=== PATIENT | female | born 1970 | race African-American/Black ===

== ENCOUNTER 2019-09-19 09:52 | Observation (INO) | payer OTHER, SELFPAY ==
[2019-09-19 10:30] LABS: Hemoglobin 10.1 g/dL (12.0-16.0); Mean Corpuscular HGB CONC 31.8 g/dL (32.0-36.0); Mean Corpuscular Hemoglobin 27.4 pg (27.0-31.0); Mean Corpuscular Volume 86.3 fL (78.0-98.0); Mean Platelet Volume 9.8 fL (7.4-10.4); Platelet Count 114 thou/uL (130-400); RBC Distribution Width 12.5 % (11.5-14.5); Red Blood Cell (RBC) Count 3.69 mill/uL (4.20-5.40); White Blood Cell (WBC) Count 6.5 thou/uL (4.8-10.8)
[2019-09-19 10:43] LABS: ALT (SGPT) 16 U/L (8-55); AST (SGOT) 15 U/L (5-34); Albumin 4.4 g/dL (3.5-5.0); Alkaline Phosphatase 64 U/L (40-110); Anion Gap 12 mmol/L (10-20); BUN (Urea Nitrogen) 18 mg/dL (7.0-18.7); Bilirubin, Total 0.4 mg/dL (0.2-1.2); CK (CPK) 90 U/L (29-168); Calc. Creatinine Clearance 0 mL/min (70-130); Calcium 9.7 mg/dL (7.8-10.44); Carbon Dioxide 26 mmol/L (22-29); Chloride 104 mmol/L (98-107); Estimated GFR-MDRD 28; Globulin 2.2 g/dL (2.4-3.5); Glucose 103 mg/dL (70-105); Potassium 3.8 mmol/L (3.5-5.1); Protein, Total 6.6 g/dL (6.0-8.3); Sodium 138 mmol/L (136-145)
[2019-09-19 10:54] LABS: #Lymphocytes 1.3 thou/uL (1.20-3.40); #Monocytes 0.8 thou/uL (0.11-0.59); #Neutrophils 4.3 thou/uL (1.40-6.50); %Basophils 0.4 % (0.0-1.0); %Eosinophils 0.4 % (0.0-10.0); %Lymphocytes 19.7 % (21.0-51.0); %Monocytes 12.5 % (0.0-10.0); %Neutrophils 66.9 % (42.0-75.0); Large Platelets SLIGHT; MDiff Complete? YES; Platelet Morphology Comment Appears Decreased; RBC Morphology Normal
--- NOTE | 2019-09-19 11:57 | RAD ---
SINGLE VIEW CHEST: Date: 09/19/2019 COMPARISON: None. HISTORY: Chest pain. FINDINGS: Single view of the chest shows a normal sized cardiomediastinal silhouette. There is no evidence of c onsolidation, mass, or pleural effusion. The bones are unremarkable. IMPRESSION: No evidence of acute cardiopulmonary disease. POS: [facility]
[2019-09-19] MEDS ORDERED: Aspirin Chewable 81 MG TAB ONE (12:21)
[2019-09-19] MEDS ORDERED: Morphine 4 MG/ML VIAL SLOW IVP SCH (14:45)
[2019-09-19] MEDS ORDERED: Famotidine/PF 20 mg/2ml Vial SLOW IVP SCH (14:45)
[2019-09-19] MEDS ORDERED: Morphine 4 MG/ML VIAL ONE (15:01)
[2019-09-19 15:10] LABS: Troponin I Less than 0.010 ng/mL (< 0.028)
[2019-09-19 16:44] VITALS: BMI 23.3
--- NOTE | 2019-09-19 16:45 | HP ---
CHIEF COMPLAINT: Chest pain. HISTORY OF PRESENT ILLNESS: The patient is a 49-year-old female with past medical history of focal segmental glomerulosclerosis, status post kidney transplant in 2011, who presents to the hospital with complaints of chest pain x1 day. The patient stated that she started having pain yesterday, which has been gradually worsening today. She states that it sometimes radiates to her left jaw. She denies any heavy lifting, any diaphoresis, any nausea, vomiting, or diarrhea. She stated that sometimes Tylenol helps with her pain. The patient denies any fevers or chills or any abdominal pain or diarrhea. The patient states that her last stress test was during her transplant time, which was in 2011. The patient stated that she has been having this "pushing" sound that she hears in her right ear, however, this has been going on for the past 10 years. She states that it has gradually gotten worse. She states that she was supposed to get an MRI of the brain and has been approved for that. PAST MEDICAL HISTORY: She has a history of kidney transplant secondary to focal segmental glomerulosclerosis, hypercholesteremia, and sciatic nerve pain. PAST SURGICAL HISTORY: She has had a hysterectomy and C-sections. FAMILY HISTORY: Her father of a heart attack at age of 67 and he was also a transplant patient, unknown etiology for his acute renal failure. ALLERGIES: SHE HAS NO KNOWN DRUG ALLERGIES. MEDICATIONS: She is on; 1. Mycophenolate one p.o. twice a day. 2. Prednisone 5 mg daily. 3. Tacrolimus 5 mg twice a day. 4. Calcitriol daily. 5. Atorvastatin 10 mg daily. 6. Candesartan 8 mg daily. SOCIAL HISTORY: She denies any alcohol use, drug use, or smoking history. She is a full code. Lives with her family. REVIEW OF SYSTEMS: All negative except for the ones mentioned above in HPI. PHYSICAL EXAMINATION: VITAL SIGNS: Temperature of 98.8, blood pressure 137/77, she is 98% on room air, and 16 respirations. GENERAL: She is awake, alert, and oriented x3. Does not appear in distress. CV: S1 and S2 present. No murmurs, rubs, or gallops. LUNGS: Clear to auscultation. No rhonchi or wheezes noted. Chest wall, pain reproducible on palpation to her left chest wall area and epigastric area. NEURO: No focal deficits noted. SKIN: No cuts, lesions, or bruises noted. LABORATORY RESULTS: Her troponin x2 were negative. WBC of 6.5, hemoglobin of 10.1, hematocrit of 31.9, and platelets of 114. Chemistry; sodium of 138, potassium of 3.8, BUN of 18, and creatinine of 1.89. Lipase is 70. Chest x-ray did not show any acute abnormalities. EKG did not show any ST elevation, depression, or T-wave changes. ASSESSMENT AND PLAN: The patient is a very pleasant 49-year-old female, presents to the hospital with chest pain. 1. Atypical chest pain. She has negative troponin x2, which her EKG is normal. We will go ahead and do a stress test on her. Also, her pain appears to be possible musculoskeletal related versus possible cardiac. I will start her on some pain medications, see if that alleviates her pain and continue to monitor. I will check lipid panel in the morning. 2. Renal transplant. She states her baseline creatinine is 1.6. She recently had a tacrolimus level checked yesterday. I will not repeat that. We will continue to monitor. We will check labs in the morning. 3. Hypertension. We will continue her home medications. 4. Deep venous thrombosis prophylaxis. We will put the patient on SCDs. Job ID: [id number]
[2019-09-19 17:14] LABS: Troponin I Less than 0.010 ng/mL (< 0.028)
[2019-09-19] MEDS: Heparin 5,000 UNITS/ML VIAL SC SCH ×2 (17:37→21:01)
[2019-09-19] MEDS ORDERED: Morphine 4 MG/ML VIAL SLOW IVP PRN (19:14)
[2019-09-19] MEDS: Tacrolimus 1 MG CAP PO SCH (20:58)
[2019-09-19] MEDS: Mycophenolate ER 180 MG TAB PO SCH (20:58)
[2019-09-19] MEDS ORDERED: Atorvastatin Calcium 10 MG TAB PO SCH (21:00)
[2019-09-20 05:23] LABS: Cardiac Risk 2.4 (Less than 4.5)
[2019-09-20] MEDS ORDERED: ADENOSINE 60 MG/20 ML VIAL ONE (08:58)
[2019-09-20] MEDS ORDERED: predniSONE 5 MG TAB PO SCH (09:00)
[2019-09-20] MEDS ORDERED: Famotidine/PF 20 mg/2ml Vial SLOW IVP SCH (09:00)
[2019-09-20] MEDS: Tacrolimus 1 MG CAP PO SCH (09:04)
[2019-09-20] MEDS: Mycophenolate ER 180 MG TAB PO SCH (09:04)
[2019-09-20] MEDS: Heparin 5,000 UNITS/ML VIAL SC SCH ×2 (09:04→15:14)
--- NOTE | 2019-09-20 10:55 | MRI ---
MRI BRAIN WITHOUT CONTRAST: INDICATIONS: Tinnitus. COMPARISON: None. FINDINGS: The ventricles have normal size and position. There is no evidence of restricted diffusion. No eviden ce of mass or edema. No significant white matter abnormality. The intracranial internal carotid arter ies and the cerebral arteries show expected flow voids. The dural venous sinuses are patent. The paranasal sinuses and mastoid air cells appear clear. IMPRESSION: Unremarkable MRI brain. POS: [facility]
--- NOTE | 2019-09-20 11:23 | NM ---
EXAM: NM Cardiac Stress W EF WF PROVIDED CLINICAL HISTORY: Chest pain COMPARISON: None FINDINGS: No significant reversible defect is seen between the stress and resting acquisitions. The gated image s demonstrate normal ventricular wall motion and wall thickening. The calculated left ventricular ejection fraction is 86%. IMPRESSION: 1. Normal myocardial perfusion study without a significant reversible defect seen to suggest ischemia . 2. Normal LVEF of 86%.
[2019-09-20 13:58] LABS: Anion Gap 13 mmol/L (10-20); BUN (Urea Nitrogen) 18 mg/dL (7.0-18.7); Calc. Creatinine Clearance 34 mL/min (70-130); Calcium 9.6 mg/dL (7.8-10.44); Carbon Dioxide 27 mmol/L (22-29); Chloride 100 mmol/L (98-107); Estimated GFR-MDRD 34; Glucose 104 mg/dL (70-105); Potassium 3.9 mmol/L (3.5-5.1); Sodium 136 mmol/L (136-145)
[2019-09-20 15:56] VITALS: BP 123/92; TEMP 98.8
[2019-09-20] MEDS ORDERED: Acetaminophen 325 MG TAB PO SCH (16:15)
[2019-09-21] MEDS ORDERED: Calcitriol 0.25 MCG CAP PO SCH (09:00)
--- NOTE | 2019-09-25 14:16 | EKG ---
Test Reason : Blood Pressure : / mmHG Vent. Rate : 064 BPM Atrial Rate : 064 BPM P-R Int : 152 ms QRS Dur : 068 ms QT Int : 384 ms P-R-T Axes : 068 054 015 degrees QTc Int : 396 ms Normal sinus rhythm Possible Left atrial enlargement Septal infarct , age undetermined Abnormal ECG Reconfirmed by DELMA MANE ([id number]), newspaper photo editor FAMILIA EMERY ([id number]) on 09/25/2019 2:15:56 PM Referred By: Confirmed By:DELMA Baker
== END 2019-09-20 18:06 | disposition home or self-care (01) ==
LOC: ERS 09:52 → 2SW 13:48
PROVIDERS: ADMIT Internal Medicine; ATTEND Internal Medicine
DX: R07.89 Other chest pain (principal); E78.00 Pure hypercholesterolemia, unspecified; I10 Essential (primary) hypertension; F41.9 Anxiety disorder, unspecified; F32.9 Major depressive disorder, single episode, unspecified; Z79.899 Other long term (current) drug therapy; Z94.0 Kidney transplant status
CPT/HCPCS: 36415; 70551; 71045; 78452; 80048; 80053; 80061; 82550; 83690; 84484; 85025; 93005; 93017; 94760; 96374; 96375; A9500; G0378; J0153; J1644; J2270; S0028